=== PATIENT | female | born 1995 | race Caucasian/White ===

== ENCOUNTER 2019-02-28 01:16 | Emergency (ER) | payer OTHER ==
[~2019-02-28] VITALS: Ht 165.1 cm; Wt 65.8 kg
[2019-02-28 01:20] VITALS: Ht 165.1 cm; Wt 65.8 kg
[2019-02-28 03:10] VITALS: BP 121/75
== END 2019-02-28 03:10 | disposition home or self-care (01) ==
LOC: ED 01:16
DX: J02.9 Acute pharyngitis, unspecified (principal); R50.9 Fever, unspecified
CPT/HCPCS: 87804